=== PATIENT | female | born 1935 | race Caucasian/White ===

== ENCOUNTER 2025-05-08 09:03 | Outpatient (CLI) | payer MEDICARE ==
[~2025-05-08] VITALS: Ht 147.3 cm; Wt 57.2 kg
[2025-05-08 09:31] LABS: TOTAL HEMOGLOBIN 12.8 G/dl (12.0-16.0)
[2025-05-08 10:09] VITALS: PULSE 61; RESP 14; O2SAT 96
[2025-05-08] MEDS: albuterol 2.5 MG/3 ML nebule NEB ONE (10:12)
--- NOTE | 2025-05-12 13:45 | PROCEDURE NOTE - Respiratory ---
Procedure Note-Respiratory Providers to CC Copies To 1: DIANE JOHN MD Procedure Name: This is a complete pulmonary function study dated May 08, 2025. Hemoglobin measurement was done as part of the study. Spirometry measurements: Both the forced vital capacity and the FEV1 measurements are normal. The FEV1 ratio is slightly diminished. Several of the flow rate measurements show reduction. Bronchodilator was not administered as part of the study. Lung volume measurements: All of the major lung volume determinations are in the normal range. Lung diffusion measurement: The DLCO measurement is modestly reduced. It is noted that the hemoglobin measurement is normal. Airway resistance measurement: The airway resistance is somewhat elevated. Conclusion: This study shows mild abnormality. There is evidence for obstructive ventilatory defect although it appears to be in the mild category. The lung diffusion capacity is modestly reduced. We have no previous studies for comparison. Should this patient remain on amiodarone therapy, it is recommended that repeat pulmonary function testing be ordered in approximately one year. RAYMON REGALADO MD May 12, 2025 13:45
== END 2025-05-08 23:59 | disposition home or self-care (01) ==
LOC: RT 09:03
PROVIDERS: ATTEND Internal Medicine Cardiovascular Disease
DX: R06.02 Shortness of breath (principal); Z79.2 Long term (current) use of antibiotics
CPT/HCPCS: 85018; 94010; 94727; 94729; 94760